=== PATIENT | male | born 1945 | race Caucasian/White ===

== ENCOUNTER 2017-06-02 19:12 | Emergency (ER) | payer BC ==
--- NOTE | 2017-06-02 19:49 | Emergency Department Record ---
History of Present Illness - General Chief Complaint: Trauma Stated Complaint: FELL 3FT AND UNCONSCIENCE FOR A FEW MINUTES Time Seen by Provider: 06/02/17 19:24 Source: Patient, Family Mode of Arrival: Ambulatory Limitations: No limitations - History of Present Illness Initial Comments: pt fell off a 3 foot brick wall landing on his head and hurting his neck. he has no numbness. he had a 3-4minute loss of conciousness. he has no nausea but does have a headache. MD Complaint: Fall Onset/Timin -: Hour(s) Loss of Consciousness: Yes Location: Head, Neck Consistency: Constant Associated Symptoms: Denies other symptoms - Related Data Home Medications Medication Instructions Recorded Confirmed Last Taken Ezetimibe [Ezetimibe] 06/02/17 Unknown Lisinopril [Lisinopril] 06/02/17 Unknown Metoprolol Succinate 50 mg PO 06/02/17 Unknown Rosuvastatin Calcium [Rosuvastatin 06/02/17 Unknown Calcium] Allergies Allergy/AdvReac Type Severity Reaction Status Date / Time No Known Drug Allergies Allergy Verified 07/02/16 11:09 Review of Systems Reviewed: No additional complaints except as noted below Constitutional: Reports: As per HPI. Denies: Chills, Fever, Malaise, Night sweats, Weakness, Weight change Eyes: Reports: As per HPI. Denies: Eye discharge, Eye pain, Photophobia, Vision change ENT: Reports: As per HPI. Denies: Congestion, Dental pain, Ear pain, Epistaxis , Hearing loss, Throat pain Respiratory: Reports: As per HPI. Denies: Cough, Dyspnea, Hemoptysis, Stridor, Wheezes Cardiovascular: Reports: As per HPI. Denies: Arrhythmia, Chest pain, Dyspnea on exertion, Edema, Murmurs, Orthopnea, Palpitations, Paroxysmal nocturnal dyspnea, Rheumatic Fever, Syncope Endocrine: Reports: As per HPI. Denies: Fatigue, Heat or cold intolerance, Polydipsia, Polyuria Gastrointestinal: Reports: As per HPI. Denies: Abdominal pain, Constipation, Diarrhea, Hematemesis, Hematochezia, Melena, Nausea, Vomiting Genitourinary: Reports: As per HPI. Denies: Dysuria, Frequency, Hematuria, Incontinence, Retention, Testicular pain, Testicular mass, Urgency Musculoskeletal: Reports: As per HPI. Denies: Arthralgia, Back pain, Gout, Joint swelling, Myalgia, Neck pain Skin: Reports: As per HPI. Denies: Bruising, Change in color, Change in hair/ nails, Lesions, Pruritus, Rash Neurological: Reports: As per HPI. Denies: Abnormal gait, Confusion, Headache, Numbness, Paresthesias, Seizure, Tingling, Tremors, Vertigo, Weakness Psychiatric: Reports: As per HPI. Denies: Anxiety, Auditory hallucinations, Depression, Homicidal thoughts, Suicidal thoughts, Visual hallucinations Hematological/Lymphatic: Reports: As per HPI. Denies: Anemia, Blood Clots, Easy bleeding, Easy bruising, Swollen glands Past Medical History - SOCIAL HISTORY Smoking Status: Former smoker - RESPIRATORY Hx Respiratory Disorders: Yes Hx Pneumonia: Yes - CARDIOVASCULAR Hx Cardio Disorders: Yes Hx Abnormal EKG: Yes Hx Cardiac Cath: Yes Hx Hypertension: Yes (on meds) Hx Irregular Heartbeat: Yes (a fib and flutter NSR since cardioversion and ablation ) - NEURO Hx Neuro Disorders: No - GI Hx GI Disorders: No - Hx Genitourinary Disorders: No - ENDOCRINE Hx Endocrine Disorders: No - MUSCULOSKELETAL Hx Musculoskeletal Disorders: Yes - PSYCH Hx Psych Problems: No - HEMATOLOGY/ONCOLOGY Hx Hematology/Oncology Disorders: Yes Hx Clotting Problems: Yes (on blood thinner) Physical Exam - General General Appearance: Alert, Oriented x3, Cooperative, Mild distress - Head Head exam: Normal inspection - Eye Eye exam: Normal appearance, PERRL, EOMI Pupils: Normal accommodation - ENT ENT exam: Normal exam, Mucous membranes moist, Normal external ear exam, Normal orophraynx Ear exam: Normal external inspection. negative: External canal tenderness Nasal Exam: Normal inspection. negative: Discharge, Sinus tenderness Mouth exam: Normal external inspection, Tongue normal Teeth exam: Normal inspection. negative: Dental caries Throat exam: Normal inspection. negative: Tonsillar erythema, Tonsillar exudate - Neck Neck exam: Normal inspection, Full ROM. negative: Tenderness - Respiratory Respiratory exam: Normal lung sounds bilaterally. negative: Respiratory distress - Cardiovascular Cardiovascular Exam: Regular rate, Normal rhythm, Normal heart sounds - GI/Abdominal GI/Abdominal exam: Soft, Normal bowel sounds. negative: Tenderness - Rectal Rectal exam: Deferred - exam: Deferred - Extremities Extremities exam: Normal inspection, Full ROM, Normal capillary refill. negative: Tenderness - Back Back exam: Reports: Normal inspection, Full ROM. Denies: Muscle spasm, Rash noted, Tenderness - Neurological Neurological exam: Alert, CN II-XII intact, Normal gait, Oriented X3 - Psychiatric Psychiatric exam: Normal affect, Normal mood - Skin Skin exam: Dry, Intact, Normal color, Warm Medical Decision Making - Lab Data Result diagrams: 06/02/17 19:30 06/02/17 19:30 Disposition Disposition: Discharge Clinical Impression: Concussion Qualifiers: Encounter type: initial encounter Loss of consciousness presence/duration: with LOC of 30 min or less Qualified Code(s): S06.0X1A - Concussion with loss of consciousness of 30 minutes or less, initial encounter Disposition: Home, Self-Care Condition: (1) Good Instructions: Concussion (ED) Additional Instructions: follow up with family doctor. return sooner if worse. monitor closely for 2 days. wake up every 2-3 hours to check on. Forms: Patient Portal Access Quality - Quality Measures Quality Measures: N/A - Blood Pressure Screening Does Patient Have Any of the Following: No Blood Pressure Classification: Pre-Hypertensive BP Reading Systolic Measurement: 138 Diastolic Measurement: 84 Screening for High Blood Pressure: < Pre-Hypertensive BP, F/U Documented > [ [id number]] Pre-Hypertensive Follow-up Interventions: Referral to alternative/primary care provider.
--- NOTE | 2017-06-03 12:18 | CT SCAN REPORT ---
EXAM: EMERGENCY HEAD CT WITHOUT CONTRAST HISTORY: PATIENT FELL THREE FEET AND HIT BACK OF SKULL, LOSS OF CONSCIOUSNESS FOR A FEW MINUTES. TECHNIQUE: Axial CT scan of the head was performed without IV contrast. Comparison: None. Encounter: Initial. FINDINGS: No definite acute intracranial hemorrhage is identified. No focal mass effect or midline shift apparent. Mild generalized atrophy is present. No definite acute infarct or intracranial mass lesion seen. Air fluid levels are seen in both maxillary antra which could be acute or chronic. No depressed calvarial fracture is evident. IMPRESSION: 1. MILD GENERALIZED ATROPHY. 2. NO ACUTE INTRACRANIAL HEMORRHAGE OR FOCAL MASS EFFECT IDENTIFIED. 3. AIR FLUID LEVELS IN BOTH MAXILLARY SINUSES. JOB NUMBER: [id number] MTDD
--- NOTE | 2017-06-03 12:23 | CT SCAN REPORT ---
EXAM: CT OF THE CERVICAL SPINE WITHOUT CONTRAST HISTORY: PATIENT FELL THREE FEET AND HIT BACK OF SKULL WITH LOSS OF CONSCIOUSNESS FOR A FEW MINUTES. TECHNIQUE: Axial CT scan of the entire cervical spine was performed without IV contrast. Comparison: None. Encounter: Initial. FINDINGS: There are air fluid levels in both maxillary antra as noted on the head CT from this evening as well. No apical pneumothorax is evident. No definite fracture of the cervical spine identified. No prevertebral soft tissue swelling is evident. Prominent degenerative change at the odontoid-anterior arch of C1 articulation. There is probably mild degenerative disk disease at the C5-C6 interspace. Multilevel facet joint arthropathy is seen. There is associated multilevel foraminal stenosis in the cervical spine. IMPRESSION: 1. NO DEFINITE FRACTURE OR PREVERTEBRAL SOFT TISSUE SWELLING SEEN IN THE CERVICAL SPINE. 2. MULTILEVEL DEGENERATIVE CHANGE IN THE CERVICAL SPINE WITH MULTILEVEL FORAMINAL STENOSIS. 3. AIR FLUID LEVELS IN BOTH MAXILLARY ANTRA. JOB NUMBER: [id number] MTDD
== END 2017-06-02 21:16 | disposition home or self-care (01) ==
LOC: ER 19:12
DX: S06.0X1A Concussion with loss of consciousness of 30 minutes or less, initial encounter (principal); M54.2 Cervicalgia; W17.89XA Other fall from one level to another, initial encounter
CPT/HCPCS: 99283; 99284; 72125; 70450; G0480; 80320

== ENCOUNTER 2019-09-05 15:17 | Emergency (ER) | payer BC, OTHER ==
--- NOTE | 2019-09-05 15:41 | Emergency Department Record ---
History of Present Illness - General Chief Complaint: Dizziness Stated Complaint: DIZINESS,MEMORY LOSS Time Seen by Provider: 09/05/19 15:32 Source: Patient, Family Mode of Arrival: Ambulatory Limitations: No limitations - History of Present Illness Initial Comments: The patient is here due to waking up 2 hours ago from a nap and being very confused. The confusion lasted about 30 minutes. Since then he has been back to normal. There has been no arm or leg numbness, weakness, difficulty talking or speaking, visual changes or balance issues. The patient denies any trauma or recent illnesses. The patient also has a hx of a similar episode a year ago that did resolve when he was living in [place]. Later he did see his PCP and was told he had a TIA. MD Complaint: Other Onset/Timin -: Hour(s) Timing: Awoke with symptoms Description: Other Severity: Mild Improves With: Nothing Worsens With: Nothing Associated Symptoms: Other - Related Data Home Medications Medication Instructions Recorded Confirmed Last Taken Apixaban [Eliquis] 5 mg PO DAILY 09/05/19 09/05/19 Unknown Doxycycline Hyclate 50 mg PO DAILY 09/05/19 09/05/19 Unknown Allergies Allergy/AdvReac Type Severity Reaction Status Date / Time No Known Drug Allergies Allergy Unverified 02/22/19 18:43 Travel Screening - Travel/Exposure Within Last 30 Days Have you traveled within the last 30 days?: No Review of Systems Constitutional: Denies: Chills, Fever Eyes: Denies: Eye discharge ENT: Denies: Congestion Respiratory: Denies: Cough Cardiovascular: Denies: Arrhythmia Endocrine: Denies: Fatigue Gastrointestinal: Denies: Nausea Genitourinary: Denies: Dysuria Musculoskeletal: Denies: Arthralgia Neurological: Reports: Confusion. Denies: Abnormal gait Past Medical History - SOCIAL HISTORY Smoking Status: Former smoker - RESPIRATORY Hx Respiratory Disorders: Yes Hx Pneumonia: Yes - CARDIOVASCULAR Hx Cardio Disorders: Yes Hx Abnormal EKG: Yes Hx Cardiac Cath: Yes Hx Hypertension: Yes (on meds) Hx Irregular Heartbeat: Yes (a fib and flutter NSR since cardioversion and ablation ) - NEURO Hx Neuro Disorders: No - GI Hx GI Disorders: No - Hx Genitourinary Disorders: No - ENDOCRINE Hx Endocrine Disorders: No - MUSCULOSKELETAL Hx Musculoskeletal Disorders: Yes - PSYCH Hx Psych Problems: No - HEMATOLOGY/ONCOLOGY Hx Hematology/Oncology Disorders: Yes Hx Clotting Problems: Yes (on blood thinner) Family Medical History Any Significant Family History?: No Physical Exam - General General Appearance: Alert, Oriented x3, Cooperative, No acute distress - Head Head exam: Atraumatic, Normocephalic, Normal inspection - Eye Eye exam: Normal appearance, PERRL, EOMI - ENT Throat exam: Normal inspection. negative: Tonsillar erythema, Tonsillar exudate - Neck Neck exam: Normal inspection, Full ROM, Other (Neg carotid bruits.). negative: Tenderness - Respiratory Respiratory exam: Normal lung sounds bilaterally. negative: Respiratory distress - Cardiovascular Cardiovascular Exam: Regular rate, Normal rhythm, Normal heart sounds - GI/Abdominal GI/Abdominal exam: Soft, Normal bowel sounds. negative: Tenderness - Extremities Extremities exam: Normal inspection, Full ROM, Normal capillary refill. negative: Tenderness - Back Back exam: Reports: Normal inspection - Neurological Neurological exam: Alert, Normal gait, Oriented X3, Other (Neg Drift and Rhomberg.). negative: Abnormal gait, Altered, Motor sensory deficit - Psychiatric Psychiatric exam: negative: Anxious Course Vital Signs 09/05/19 15:19 Temperature 97.7 F Pulse Rate 58 L Respiratory 16 Rate Blood Pressure 190/100 Pulse Ox 98 - Reevaluation(s) Reevaluation #1: The patient is doing well at this time and is neurologically intact and answering all questions appropriately. I did discuss the case with Dr. Tabares here and he feels the patient needs a larger hospital. I then asked the patient where he would like to go and [place] [facility] I did discuss the case with Dr. Quigley from D [place] at [facility] and he does accept the patient in transfer. 09/05/19 16:53 Medical Decision Making - Data Complexity MDM Data: Labs Ordered and/or Reviewed, X-Ray Ordered and/or Reviewed, EKG Ord ered and/or Reviewed - Lab Data Result diagrams: 09/05/19 15:30 09/05/19 15:30 - EKG Data -: EKG Interpreted by Me EKG: No Acute Changes (NSR at 50 with LBBB.), LBBB - Radiology Data Radiology results: Report reviewed (Head CT: Neg for acute changes.) Disposition Disposition: Transfer Clinical Impression: Transient global amnesia Disposition: Acute Care Hospital Transfer [place] [facility] [place] For Transfer: Neurology Accepting Physician: Dann Time Discussed w/Accepting Physician: 16:55 Condition: (2) Stable Forms: Patient Portal Access Time of Disposition: 16:55 Quality - Quality Measures Quality Measures: N/A - Blood Pressure Screening View Details: Yes Does Patient Have Any of the Following: Active Dx of HTN Blood Pressure Classification: Hypertensive Reading Systolic Measurement: 190 Diastolic Measurement: 100 Screening for High Blood Pressure: Patient Exclusion, Hx of HTN [G9744]
[2019-09-05 15:55] LABS: ABSOLUTE NEUTROPHIL COUNT 5.53; BASO % 0.2 % (0-6); EOS % 1.7 % (0-6); GRAN % 66.8 % (47-80); HEMATOCRIT 44.8 % (42.0-52.0); HEMOGLOBIN 14.1 gm/dl (14.0-18.0); LYMPH % 20.3 % (16-45); MEAN CELL VOLUME 86.7 fl (81-97); MEAN CORPUSCULAR HEMOGLOBIN 27.3 pg (27-33); MEAN CORPUSCULAR HGB CONC 31.5 g/dl (32-36); MEAN PLATELET VOLUME 9.4 fl (7.4-10.4); PLATELET COUNT 238 K/uL (130-400); RED BLOOD COUNT 5.17 M/uL (4.40-5.70); RED CELL DISTRIBUTION WIDTH 15.2 % (11.5-14.5); WHITE BLOOD COUNT W/O DIFF 8.3 K/uL (4.2-12.2)
[2019-09-05 16:09] LABS: PARTIAL THROMBOPLASTIN TIME 27.9 SECONDS (24.5-39.1); PROTHROMBIN TIME (PATIENT) 10.5 SECONDS (9.5-12.1)
[2019-09-05 16:10] LABS: BLOOD UREA NITROGEN 20 mg/dL (8-23); EST GLOMERULAR FILTRATION RATE > 60 mL/min; TOTAL PROTEIN 6.6 g/dL (6.6-8.7)
[2019-09-05 16:12] LABS: GLUCOSE,RANDOM 90 mg/dL (74-109)
--- NOTE | 2019-09-05 16:12 | CT SCAN REPORT ---
EXAMINATION: HEAD WO CONTRAST EXAM DATE: 09/05/2019 3:59 PM TECHNIQUE: Noncontrast axial images were obtained to the brain. INDICATION: acute confusion. COMPARISON: None. ENCOUNTER: Not applicable. HAND DOMINANCE: Unknown FINDINGS: Low-attenuation areas in the periventricular and subcortical white matter. Mild encephalomalacia in t he right parietal lobe (2:93) into the right frontal lobe (2:98) are consistent with chronic ischemia . There is a chronic lacunar infarct in the left The brain parenchyma is otherwise unremarkable. No l oss of shen-white matter differentiation or sulcal effacement to indicate acute infarction. No evide nce of intracranial mass. There is enlargement of the ventricles, sulci, and subarachnoid spaces. No hydrocephalus. There is arterial calcification. No intra-axial or extra-axial fluid collection. No evidence of intracranial hemorrhage. Moderate paranasal sinus mucosal thickening with a frothy mucosa The paranasal sinuses, mastoid air cells, and orbits are otherwise unremarkable. The calvarium is intact. IMPRESSION: 1. No CT evidence of intracranial hemorrhage or acute intracranial abnormality. 2. Old ischemic changes: Moderate white matter hypoattenuation most commonly represents chronic aubrey rovascular ischemic disease. Small regions of chronic ischemia the right parietal lobe and right fron kelton lobe and a MCA watershed territory. Chronic left basal ganglia lacunar infarct. 3. Mild cerebral and cerebellar atrophy, consistent with age. 4. Moderate paranasal sinus inflammatory changes appear acute or chronic Critical results protocol initiated at 4:02 PM. A Red Critical Result was communicated to Dr. Dimas Dolan at 09/05/2019 4:09 PM. Dictated by: DAVID CASEY MD on 09/05/2019 4:02 PM. .
[2019-09-05 16:15] LABS: ALB/GLOB RATIO 1.9 (1.1-1.8); ALBUMIN 4.3 g/dL (4.0-5.0); ALKALINE PHOSPHATASE 75 U/L (40-129); ALT/SGPT 28 U/L (<41); AST/SGOT 27 U/L (10.0-50.0)
[2019-09-05] MEDS: ASPIRIN 325 MG TABLET PO ONE (16:55)
== END 2019-09-05 18:30 | disposition short-term general hospital (02) ==
LOC: ER 15:17
DX: G45.4 Transient global amnesia (principal); R42 Dizziness and giddiness; R41.0 Disorientation, unspecified; I10 Essential (primary) hypertension; Z79.01 Long term (current) use of anticoagulants; I48.91 Unspecified atrial fibrillation; Z87.891 Personal history of nicotine dependence
CPT/HCPCS: 70450; 80053; 84484; 85025; 85610; 85730; 93005; 93010; 99285